=== PATIENT | female | born 1970 | race Caucasian/White ===

== ENCOUNTER 2022-01-14 23:50 | Emergency (ER) | payer SELFPAY ==
--- NOTE | 2022-01-15 00:41 | NUR ---
Pt called in from the waiting room and outside to be triaged but no answer. Patient left without being seen by ER physician.
[2022-01-15] MEDS ORDERED: ONDA4TAB11 PO (11:42)
== END 2022-01-15 00:43 | disposition left against medical advice (07) ==
LOC: ER 01-15 00:20
DX: Z53.21 Procedure and treatment not carried out due to patient leaving prior to being seen by health care provider (principal)

== ENCOUNTER 2022-01-15 10:03 | Emergency (ER) | payer BC ==
[~2022-01-15] VITALS: Ht 170.2 cm; Wt 54.4 kg
--- NOTE | 2022-01-15 10:35 | NUR ---
PATIENT WAS MSE BY DR CONNELL IN ROOM 05A.
[2022-01-15] MEDS ORDERED: ONDA4TAB11 PO (11:42)
--- NOTE | 2022-01-15 12:00 | NUR ---
Patient discharged to home in stable condition. Written and verbal after care instructions given. Patient verbalizes understanding of instructions. Stressed follow up or return to ER for worsening s/s.
[2022-01-15 12:02] VITALS: BP 104/73
== END 2022-01-15 12:04 | disposition home or self-care (01) ==
LOC: ER 10:03
DX: S06.0X0A Concussion without loss of consciousness, initial encounter (principal); W18.30XA Fall on same level, unspecified, initial encounter; Y92.89 Other specified places as the place of occurrence of the external cause
CPT/HCPCS: 70450; A4663